=== PATIENT | female | born 1965 | race Hispanic/Latino ===

== ENCOUNTER 2024-08-11 12:09 | Emergency (ER) | payer BC, OTHER ==
[2024-08-11] MEDS ORDERED: Acetaminophen 500 MG TAB ONE (12:24)
== END 2024-08-11 13:37 | disposition home or self-care (01) ==
LOC: ERS 12:09
DX: M54.2 Cervicalgia (principal); R07.89 Other chest pain; V43.92XA Unspecified car occupant injured in collision with other type car in traffic accident, initial encounter
CPT/HCPCS: 71045